=== PATIENT | male | born 1985 | race Hispanic/Latino ===

== ENCOUNTER → 2024-02-04 | Outpatient (CLI) | payer OTHER ==
[~2024-02-04] MED LIST: GADOTERATE MEGLUMINE 10 MMOL/20 ML VIAL IV ONE
--- NOTE | 2024-02-04 16:05 | HMCIMG ---
MR HIP RIGHT WWO HISTORY: Right hip contusion COMPARISON: None TECHNIQUE: MRI of the right. was performed utilizing multiple pulse sequences in axial, coronal and sagittal planes. Patient was given 20 cc of Clariscan through intravenous route. FINDINGS: Subtle increase signal intensity is seen involving the right acetabulum anteriorly and posteriorly consistent with bone bruise (microtrabecular fracture). Mild enhancement is seen of right acetabulum. No acute displaced fracture or dislocation is seen otherwise. No appreciable amount of joint effusion is seen. There is no evidence of avascular necrosis or dislocation otherwise. IMPRESSION: 1. Bone bruise MR enhancement is seen of the right acetabulum. No acute displaced fracture or dislocation is seen.
== END | disposition home or self-care (01) ==
LOC: RAH 14:10 → EDUNIT# 15:00
PROVIDERS: ATTEND Student in an Organized Health Care Education/Training Program
DX: S70.01XA Contusion of right hip, initial encounter (principal); X58.XXXA Exposure to other specified factors, initial encounter; Y93.89 Activity, other specified; Y92.89 Other specified places as the place of occurrence of the external cause; Y99.8 Other external cause status
CPT/HCPCS: 73723; A9575